=== PATIENT | male | born 1950 | race Two or more races ===

== ENCOUNTER 2019-02-08 07:13 | Outpatient (CLI) | payer OTHER | END 2019-02-08 08:34 | disposition home or self-care (01) | LOC: NUCLEAR 07:13 | DX: I10 Essential (primary) hypertension (principal); R06.09 Other forms of dyspnea; R94.31 Abnormal electrocardiogram [ECG] [EKG] | CPT/HCPCS: 78452; 93017; A9500 ==

== ENCOUNTER 2021-09-18 18:25 | Outpatient (CLI) | payer OTHER | END 2021-09-18 23:00 | disposition home or self-care (01) | LOC: LAB 18:25 | PROVIDERS: ATTEND Urology | DX: R97.20 Elevated prostate specific antigen [PSA] (principal) ==

== ENCOUNTER 2021-09-30 07:43 | Outpatient (CLI) | payer OTHER | END 2021-09-30 07:52 | disposition home or self-care (01) | LOC: SONOGRAMA 07:43 | PROVIDERS: ATTEND Urology | DX: D29.1 Benign neoplasm of prostate (principal) ==

== ENCOUNTER 2021-10-26 07:24 | Outpatient (CLI) | payer OTHER | END 2021-10-26 07:26 | disposition home or self-care (01) | LOC: NUCLEAR 07:24 | PROVIDERS: ATTEND Urology | DX: C61 Malignant neoplasm of prostate (principal) ==

== ENCOUNTER 2021-11-04 08:02 | Outpatient (CLI) | payer OTHER | END 2021-11-04 08:14 | disposition home or self-care (01) | LOC: TOM 08:02 | PROVIDERS: ATTEND Urology | DX: R97.20 Elevated prostate specific antigen [PSA] (principal); C61 Malignant neoplasm of prostate | CPT/HCPCS: 74177; Q9965 ==